=== PATIENT | female | born 1965 | race Caucasian/White ===

== ENCOUNTER → 2018-12-24 | Emergency (ER) | payer BC, OTHER ==
[~2018-12-24] VITALS: Ht 154.9 cm; Wt 76.2 kg
[~2018-12-24] MED LIST: ADDERALL 20 MG20 MG PO; LEVOTHYROXINE100 MC1 PO; OXYCONTIN10 M1 PO; PERCOCET 10-321 EACH PO; PREDNISONE50 MG PO; VENTOLIN HFA 1818 GM INH
[2018-12-24 10:10] VITALS: BP 109/77
== END ==
LOC: M.ERS 08:41
DX: J45.901 Unspecified asthma with (acute) exacerbation (principal); E03.9 Hypothyroidism, unspecified; Z88.5 Allergy status to narcotic agent

== ENCOUNTER 2020-05-14 02:21 | Emergency (ER) | payer BC, OTHER ==
[~2020-05-14] VITALS: Ht 154.9 cm; Wt 77.1 kg
[2020-05-14] MEDS ORDERED: TOPAMAX100 MG PO (02:31)
[2020-05-14] MEDS ORDERED: LEXAPRO20 MG PO (02:31)
[2020-05-14] MEDS ORDERED: VITAMIN D PO (02:33)
[2020-05-14] MEDS ORDERED: IPRAT-ALBUT 0.5-3 ML INH (03:24)
[2020-05-14] MEDS ORDERED: MEDROLDOSEPACK PO (03:24)
[2020-05-14 04:46] VITALS: BP 106/68
== END 2020-05-14 04:46 | disposition home or self-care (01) ==
LOC: M.ERS 02:21
DX: J45.901 Unspecified asthma with (acute) exacerbation (principal); Z20.828 Contact with and (suspected) exposure to other viral communicable diseases; E03.9 Hypothyroidism, unspecified; Z79.899 Other long term (current) drug therapy; Z88.8 Allergy status to other drugs, medicaments and biological substances